=== PATIENT | male | born 2000 | race Caucasian/White ===

== ENCOUNTER 2024-07-20 19:58 | Emergency (ER) | payer OTHER ==
[~2024-07-20] VITALS: Ht 175.3 cm; Wt 63.5 kg
[~2024-07-20 19:58] MED LIST: FISH OIL 1,0001 EA10 PO; GUANFACINE HCL E1 MG PO; PALIPERIDONE ER3 MG PO; THERA-D2000 UNIT PO; ZOLOFT50 MG PO
[2024-07-20] MEDS ORDERED: FISH OIL 1,0001 EA10 PO (22:05)
== END 2024-07-20 23:58 | disposition home or self-care (01) ==
LOC: ER 19:58
DX: M54.6 Pain in thoracic spine (principal); Z79.899 Other long term (current) drug therapy; V49.9XXA Car occupant (driver) (passenger) injured in unspecified traffic accident, initial encounter
CPT/HCPCS: 72128; 99284-25